=== PATIENT | male | born 1980 | race Caucasian/White ===

== ENCOUNTER 2018-06-10 17:09 | Emergency (ER) | payer MEDICAID, SELFPAY ==
[2018-06-10 17:10] VITALS: PULSE 75; RESP 16; TEMP 36.3; O2SAT 100; BMI 22.9
--- NOTE | 2018-06-10 17:40 | RAD_ITS ---
STUDY: X-RAY - RIGHT FOOT CLINICAL: Male, 38 years old. Injury, pain. TECHNIQUE: 3 view(s) of the foot. COMPARISON: None. FINDINGS: Normal talus, calcaneus, and tarsal bones. Normal visualized subtalar, talonavicular, calcaneocuboid, tarsal and tarsometatarsal articulations. Normal metatarsi. Normal metatarsophalangeal joint of the great toe. Normal tibial and fibular sesamoid bones. Normal interphalangeal joint of the great toe. Normal phalanges of the great toe. Normal second through fifth metatarsophalangeal joints. Normal interphalangeal joints and phalanges of the lesser toes. The soft tissue structures are unremarkable. RAD/Foot min 3 Views IMPRESSION: Normal x-ray examination of the foot. Electronically Signed: Jyoti Basilio MD at 18:59 EST Tel , Service support ,
[2018-06-10 17:41] VITALS: BP 128/81
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
== END 2018-06-10 19:07 | disposition home or self-care (01) ==
LOC: ED 17:48
PROVIDERS: Emergency Provider Emergency Medicine
DX: S90.31XA Contusion of right foot, initial encounter (principal); Z79.899 Other long term (current) drug therapy; W22.8XXA Striking against or struck by other objects, initial encounter; Y93.89 Activity, other specified; Y92.219 Unspecified school as the place of occurrence of the external cause; Y99.8 Other external cause status
CPT/HCPCS: 73630; 99283

== ENCOUNTER → 2018-09-04 15:36 | Outpatient (CLI) | payer MEDICAID, SELFPAY ==
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
== END ==
PROVIDERS: Family Provider Internal Medicine; PCP Internal Medicine; Referring Provider Chiropractor; Visit Provider Chiropractor
DX: S23.3XXA Sprain of ligaments of thoracic spine, initial encounter (principal)
CPT/HCPCS: 72072

== ENCOUNTER 2018-10-24 11:30 | Outpatient (RCR) | payer MEDICAID, SELFPAY ==
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
== END 2018-10-24 19:00 | disposition home or self-care (01) ==
LOC: PT 11:30
PROVIDERS: Family Provider Internal Medicine; PCP Internal Medicine; Referring Provider Chiropractor; Visit Provider Chiropractor
DX: S23.3XXD Sprain of ligaments of thoracic spine, subsequent encounter (principal)
CPT/HCPCS: 97113; 97162; 97530

== ENCOUNTER 2019-01-18 15:31 | Emergency (ER) | payer MEDICAID, SELFPAY ==
[2019-01-18 15:31] VITALS: BP 131/97; PULSE 82; RESP 16; TEMP 36.4; O2SAT 97; BMI 24.4
--- NOTE | 2019-01-18 15:45 | ED.VIS.DENTA ---
History of Present Illness Chief Complaint: Dental Informant: Patient Onset: Yesterday Context: Gradual Onset Timing: Continuous Quality: ache Location: left mandibular tooth Current Severity: Severe Maximum Severity: Severe Worsened by: air exposure Relieved by: - - nothing Narrative: Patient states his tooth is been hurting him for a day or 2, he was brushing his teeth last night and the feeling that was enough to came out of the tooth and has been hurting a lot more since then. No fevers or swelling. It has been bleeding however, and foul-smelling. Past Medical History - Allergies and Home Meds Allergies/Adverse Reactions: Allergies acetaminophen [From Tylenol] Allergy (Verified 01/18/19 15:32) Rash Primary Care Physician: Michi Campos [Primary Care Provider] - Smoking Status: Never smoker Drugs: None Review of Systems General: Denies: Chills, Fever ENT: Reports: - - toothache. Denies: Rhinorrhea, Sore throat Gastrointestinal: Denies: Nausea, Vomiting Skin: Denies: Rash, Wounds Physical Exam Vital Signs/Narrative: Vital Signs Temp Pulse Resp BP Pulse Ox 01/18/19 15:31 97.6 F L 82 16 131/97 H 97 Inital Vital Signs reviewed: Yes General: Well nourished, Well developed, - - well-appearing, nad Head: Normocephalic, Atraumatic ENT: Moist mucous membranes, No rhinorrhea Mouth/Throat: Normal inspection lips/gums, Normal oral mucosa, Tenderness on tooth percussion - tooth #19; no bleeding from lateral deficit, where filling used to be. very tender.. Negative for: Focal gum swelling, Trismus Neck: Supple, No lymphadenopathy Skin: Normal color, No rash, No Trauma Neurological: Alert, Oriented x3, Cranial nerves II-XII grossly intact, Normal Strength, Normal Sensation Psychological: Normal affect, Normal Mood Diagnostic/Tx/Re-eval - Medical Decision Making Dental Procedures: Cavet temporary sealant placed - after local anesthesia w/ topical cetacaine Patient does not have an abscess clinically, certainly could be an infection that caused his failing to be lost. He is improved after temporary sealant here. We will place him on amoxicillin and advise close outpatient follow-up with his dentist which he plans on doing. ED Disposition - Plan for ED Patient: Disposition: Home or Assisted Living Diagnosis: Loss of filling from access hole of tooth, Odontalgia Instructions: Dental Pain Prescriptions: Amoxicillin 500 mg PO TID #30 tab Transmission Status: Pending to [facility] #30 Referrals: Michi Campos [Primary Care Provider] - Dentist,Your [STAFF PHYSICIAN] - As soon as possible
== END 2019-01-18 16:00 | disposition home or self-care (01) ==
LOC: ED 15:52
PROVIDERS: Emergency Provider Emergency Medicine
DX: K08.89 Other specified disorders of teeth and supporting structures (principal)
CPT/HCPCS: 99282

== ENCOUNTER 2019-11-07 19:11 | Emergency (ER) | payer MEDICAID, SELFPAY ==
[2019-11-07 19:12] VITALS: BP 95/70; PULSE 99; RESP 17; TEMP 36.5; O2SAT 95; BMI 24.5
[2019-11-07] MEDS: Ondansetron 4 MG/2 ML Vial IV (19:27)
[2019-11-07] MEDS: Naloxone 2 MG/2 ML Syringe IV (19:27)
[2019-11-07 20:07] LABS: Amphetamine Urine VISTA POSITIVE (<1000 ng/mL); Barbiturate Urine VISTA NEGATIVE (< 200 ng/mL); Benzodiazepine Urine VISTA NEGATIVE (< 200 ng/mL); Cocaine Urine VISTA NEGATIVE (< 300 ng/mL); Ecstacy Urine VISTA NEGATIVE (< 500 ng/mL); Methadone Urine VISTA NEGATIVE (< 300 ng/mL); PCP Urine VISTA NEGATIVE (< 25 ng/mL); THC Urine VISTA NEGATIVE (< 50 ng/mL); Vista UDS pH Range 7
[2019-11-07 20:58] LABS: Alcohol, Blood (Medical)-Serum < 3.0 mg/dL
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
[2019-11-07 21:41] LABS: Absolute Lymphocyte Count 2.02 X10^3/uL (0.83-4.51); Absolute Neutrophil Count 16.2 X10^3/uL (2.0-7.7); Basophil# 0.04 X10^3/uL; Basophil% 0.2 % (0-1); Differential Indicated SCAN CRITERIA MET; Eosinophil# 0.01 X10^3/uL; Hematocrit 43.2 % (40-54); Hemoglobin 14.2 g/dL (13.0-16.5); Lymphocyte # 2.02 X10^3/ul (4.0); Lymphocyte % 9.9 % (19-41); Mean Corp Hgb Conc 32.9 g/dL (32-36); Mean Corpuscular Hgb 30.1 pg (27.0-32.0); Mean Corpuscular Volume 91.5 fL (80-94); Mean Platelet Vol. 9.3 fl (6.2-12.0); Monocyte# 2.08 X10^3/uL; Monocyte% 10.1 % (0-10); NRBC Flagged by Analyzer 0 % (0-5); Neutrophil % 79.1 % (47-70); POSITIVE DIFFERENTIAL YES; Platelet Count 223 K/mm3 (150-450); RBC Distribution Width CV 12.9 % (11.6-14.6); RBC Distribution Width SD 43.1 fl (35.1-43.9); Red Blood Count 4.72 M/mm3 (4.6-6.2); White Blood Count 20.5 K/mm3 (4.4-11.0)
[2019-11-07 21:56] LABS: ALB/GLOB Ratio 0.9 RATIO (0.9-2.4); AST(SGOT) 18 U/L (15-37); Alanine Aminotransfer ALT/SGPT 21 U/L (16-61); Albumin, Serum 3.4 g/dL (3.2-5.0); Alkaline Phosphatase 51 U/L (45-117); Anion Gap 2 (5-15); BUN 16 mg/dL (7-18); BUN/Creat Ratio 10.7 RATIO (10-20); Calcium,Total 8.6 mg/dL (8.5-10.1); Chloride 111 mmol/L (98-107); Creatinine, Serum 1.49 mg/dL (0.70-1.30); EST Glomerular Filtration Rate 56 mL/min (>60); Est Glom Filt Rate - Afr Amer 67 mL/min (>60); Estimated Creatinine Clearance 68.73 ml/min; Globulin 3.8 g/dL (2.2-4.2); Glucose 62 mg/dL (74-106); Potassium 4.8 mmol/L (3.5-5.1); Protein, Total 7.2 g/dL (6.4-8.2); Sodium Level 142 mmol/L (136-145)
[2019-11-07 22:00] LABS: Differential Comment SCANNED
--- NOTE | 2019-11-07 22:40 | ED.RN ---
called pt mom per pt request milagro at [phone] to get him a ride home.
[2019-11-07 22:41] VITALS: BP 91/69; PULSE 82; RESP 13; O2SAT 94
[2019-11-09 11:50] LABS: Pathologist Review Reviewed
== END 2019-11-08 00:08 | disposition home or self-care (01) ==
PROVIDERS: Emergency Provider Emergency Medicine
DX: R41.82 Altered mental status, unspecified (principal); Z87.820 Personal history of traumatic brain injury
CPT/HCPCS: 70450; 80053; 80307; 80320; 85025; 96374; 96375; 99284; A4216; G0480; J2405

== ENCOUNTER 2020-06-03 20:09 | Emergency (ER) | payer MEDICAID, SELFPAY ==
[2020-06-03 20:09] VITALS: BP 143/66; PULSE 92; RESP 18; TEMP 36.1; O2SAT 99; BMI 22.4
--- NOTE | 2020-06-03 20:38 | ED.DCSUM_ITS ---
History of Present Illness Chief Complaint: Rash Informant: Patient Narrative: Patient is a 40-year-old previously healthy male who presents to the emergency department for multiple complaints. His first concern is rash to his bilateral knees. This is itching. He states that he was working on a carpet on his hands and knees just prior to this starting. He did switch to a new detergent as well. No other rash elsewhere. His second concern is painful urination. This is intermittent. Has been ongoing for 3 months. He has had unprotected intercourse with multiple women. He states that the 1 had a diagnosis of hepatitis B and C but she was treated for this. He denies any penial discharge. He denies any fevers or chills. He has not tried any treatments for either of his complaints. Past Medical History - Allergies and Home Meds Allergies/Adverse Reactions: Allergies No Known Allergies Allergy (Verified 06/03/20 21:22) Primary Care Physician: Care Physician,No Primary [Primary Care Provider] - Prior records reviewed: Yes Past Medical History: None Smoking Status: Current every day smoker Drugs: - - admits to IV drug abuse Review of Systems All systems negative except as indicated General: Denies: Chills, Fever, Sweats Eyes: Denies: Visual changes - bilaterally, Diplopia ENT: Denies: Rhinorrhea, Sore throat Cardiovascular: Denies: Chest pain, Palpitations Respiratory: Denies: Dyspnea, Cough, Dyspnea on exertion Gastrointestinal: Denies: Abdominal pain, Nausea, Vomiting, Diarrhea Genitourinary: Reports: Dysuria. Denies: Hematuria, Frequency Musculoskeletal: Denies: Back pain, Extremity Pain Skin: Reports: Rash. Denies: Wounds Neurological: Denies: Headache, Weakness, Numbness Physical Exam Vital Signs/Narrative: Vital Signs Temp Pulse Resp BP Pulse Ox 06/03/20 20:09 97 F L 92 18 143/66 H 99 General: Well nourished, Well developed, No Acute Distress Head: Normocephalic, Atraumatic Eyes: Perrl, EOMI ENT: Moist mucous membranes, No rhinorrhea Neck: Supple, Nontender Cardiovascular: Regular rate, Regular rhythm, No murmurs Respiratory: No distress, CTA bilaterally, Chest nontender Abdomen: Soft, Nontender, Nondistended, Normal bowel sounds Back: Nontender, Normal Inspection Extremities: Nontender, No edema Skin: Normal color, Rash - Erythematous, macular rash of her bilateral knees. This does appear to be contact dermatitis. No lesions elsewhere. Neurological: Alert, Oriented x3, Cranial nerves II-XII grossly intact, Normal Strength, Normal Sensation Psychological: Normal affect, Normal Mood Diagnostic/Tx/Re-eval - Medical Decision Making Patient presents to the ED for rash to his knees after being on the carpet with his hands and knees. Does appear to have a contact dermatitis. No painful joint movements or joint swelling. Will recommend a steroid cream over the area. He is also complaining of dysuria with concern for STD. Will check gonorrhea and chlamydia and urinalysis. The symptoms have been intermittent over the past 3 months. Will refer him to a PCP as he does not currently have one for further evaluation. Patient's urinalysis did not show any evidence of UTI. Gonorrhea and Chlamydia are currently pending. We will hold off on treatment until this results. I did prescribe him hydrocortisone cream to apply daily to the affected area. Warning signs and symptoms for which to return to the ED were reviewed with him. He understands and is agreeable this plan. Discharged home in stable condition. All questions were answered. ED Disposition - Plan for ED Patient: Disposition: Home or Assisted Living Diagnosis: Contact dermatitis, Dysuria Instructions: ED Contact Dermatitis, ED Dysuria, Uncertain Cause (Adult) Prescriptions: Hydrocortisone 1% Crm [Hytone] 1 applic TOPICAL DAILY 5 Days #1 tube Transmission Status: Pending to [facility] #30 Referrals: Care Physician,No Primary [Primary Care Provider] - Marlo Gomes [[facility]] - As soon as possible
[2020-06-03 21:32] LABS: Bacteria 0 SEEN /hpf (None Seen); Mucous, Urine 0 SEEN /hpf (<or=2+); Red Blood Cells-Urine 0 SEEN /hpf (0-5); Squamous Epithelial Cells - UA 0 SEEN /hpf (0-5); White Blood Cells 0 SEEN /hpf (0-5)
[2020-06-03 21:34] LABS: Color, Urine Yellow (Yellow); Glucose, Dipstick Normal (Normal); Ketone-Dipstick Negative (Negative); Leukocyte Esterase-Dipstick Negative /ul (Negative); Nitrite-Dipstick Negative (Negative); Occult Blood-Urine Negative /ul (Negative); Protein-Dipstick Negative (Negative); Urine Bilirubin Dipstick Negative (Negative); Urine Clarity Clear (Clear); Urine Urobilinogen Normal (Normal)
[2020-06-03 22:14] VITALS: PULSE 79; RESP 15; O2SAT 100
[2020-06-03 23:07] LABS: Chlamydia Trachomatis by PCR Negative (Negative); Neisserai gonorrhoeae by PCR Negative (Negative); Probe Check PASS; Sample Adequacy Control PASS; Specimen Processing Control PASS
== END 2020-06-03 22:17 | disposition home or self-care (01) ==
LOC: ED 20:56
PROVIDERS: Emergency Provider Emergency Medicine
DX: L25.9 Unspecified contact dermatitis, unspecified cause (principal); R30.0 Dysuria; F17.200 Nicotine dependence, unspecified, uncomplicated
CPT/HCPCS: 81001; 87491; 87591; 99282

== ENCOUNTER 2023-08-17 19:14 | Emergency (ER) | payer MEDICAID, SELFPAY ==
[2023-08-17 19:15] VITALS: BP 144/105; PULSE 68; RESP 18; TEMP 34.9; O2SAT 100; BMI 24.4
[2023-08-17 19:23] VITALS: TEMP 35; O2SAT 100
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
--- NOTE | 2023-08-17 19:40 | RAD_ITS ---
STUDY: X-RAY - RIGHT HAND REASON FOR EXAM: Male, 43 years old. pain TECHNIQUE: 3 view(s) of the hand. COMPARISON: None. FINDINGS: Normal radiocarpal articulation. Normal distal radioulnar joint. Normal visualized carpal bones. Normal carpal articulations Normal carpometacarpal articulation of the thumb. Normal second through fifth carpometacarpal joints. Normal metacarpi. Normal metacarpophalangeal joint of the thumb. Normal interphalangeal joint of the thumb. Normal proximal and distal phalanges of the thumb. Normal metacarpophalangeal joints of the second through fifth fingers. Normal proximal and distal interphalangeal joints of the second through fifth fingers. Normal phalanges of the second through fifth fingers. The soft tissue structures are unremarkable. RAD/Hand Min 3 Views IMPRESSION: Normal x-ray examination of the hand. Electronically Signed: Jerad Stanley MD at 20:34 EST ,
--- NOTE | 2023-08-17 19:40 | RAD_ITS ---
STUDY: X-RAY - PELVIS AND RIGHT HIP REASON FOR EXAM: Male, 43 years old. pain TECHNIQUE: 3 views of the pelvis and hip. COMPARISON: None. FINDINGS: There is a non-specific bowel gas pattern. Normal visualized soft tissue structures. Normal bilateral iliac wings, sacroiliac joints and visualized sacrum. Normal bilateral superior and inferior pubic rami. Normal pubic symphysis. Normal bilateral ischial tuberosities. Normal visualized femoral head. Normal acetabulum. Normal hip joint. RAD/HIP, UNI W/ Pelvis 2-3 Views IMPRESSION: Normal x-ray examination of the pelvis and hip. Electronically Signed: Jerad Stanley MD at 20:31 EST ,
--- NOTE | 2023-08-17 19:42 | NURSING ---
Pt warpped with warmed blankets.
[2023-08-17 20:13] VITALS: BP 129/93; PULSE 76; RESP 16; TEMP 36.6; O2SAT 99
== END 2023-08-17 20:23 | disposition home or self-care (01) ==
PROVIDERS: Emergency Provider Emergency Medicine; Visit Provider Emergency Medicine
DX: S70.01XA Contusion of right hip, initial encounter (principal); S60.221A Contusion of right hand, initial encounter; F17.210 Nicotine dependence, cigarettes, uncomplicated; F17.220 Nicotine dependence, chewing tobacco, uncomplicated; W10.9XXA Fall (on) (from) unspecified stairs and steps, initial encounter
CPT/HCPCS: 73130; 73502; 99282

== ENCOUNTER 2023-10-27 21:12 | Emergency (ER) | payer MEDICAID, SELFPAY ==
[2023-10-27 21:13] VITALS: BP 129/83; PULSE 93; RESP 15; TEMP 36.4; O2SAT 96; BMI 24.2
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
--- NOTE | 2023-10-27 22:00 | RAD_ITS ---
EXAM: XR LEFT KNEE, 3 VIEWS CLINICAL INDICATION: Injury/Pain TECHNIQUE: Three views of the left knee. COMPARISON: No relevant prior studies available. FINDINGS: BONES/JOINTS: Mildly displaced focal cortical fracture at the peripheral cortex of the medial patellar facet. Moderate suprapatellar joint effusion. No sclerotic or destructive changes observed. SOFT TISSUES: Unremarkable. No soft tissue swelling or gas. No radiopaque foreign body. RAD/Knee 4 or More Views IMPRESSION: 1. Mildly displaced focal cortical fracture at the peripheral cortex of the medial patellar facet. 2. Moderate suprapatellar joint effusion. Electronically Signed: Golden Michel MD at 23:14 EDT ,
[2023-10-28 00:16] VITALS: BP 120/70; PULSE 90; RESP 16; TEMP 36.8; O2SAT 100
== END 2023-10-28 00:16 | disposition home or self-care (01) ==
PROVIDERS: Emergency Provider Emergency Medicine; Visit Provider Emergency Medicine
DX: S82.002A Unspecified fracture of left patella, initial encounter for closed fracture (principal); F17.210 Nicotine dependence, cigarettes, uncomplicated; F17.220 Nicotine dependence, chewing tobacco, uncomplicated; V43.92XA Unspecified car occupant injured in collision with other type car in traffic accident, initial encounter
CPT/HCPCS: 73564; 99283